=== PATIENT | female | born 1985 | race Two or more races ===

== ENCOUNTER 2019-07-21 00:23 | Emergency (ER) | payer OTHER ==
[~2019-07-21] VITALS: Ht 154.9 cm; Wt 99.8 kg
[2019-07-21] MEDS ORDERED: KETO10TA2 PO (01:23)
== END 2019-07-21 01:40 | disposition home or self-care (01) ==
LOC: ER 00:23
DX: S80.01XA Contusion of right knee, initial encounter (principal); M12.561 Traumatic arthropathy, right knee; W18.09XA Striking against other object with subsequent fall, initial encounter; Y93.89 Activity, other specified; Y92.89 Other specified places as the place of occurrence of the external cause; Y99.8 Other external cause status